=== PATIENT | male | born 1995 | race Caucasian/White ===

== ENCOUNTER 2022-07-10 08:03 | Emergency (ER) | payer OTHER ==
[2022-07-10 08:12] VITALS: BP 145/86; PULSE 96; RESP 18; TEMP 98.4; BMI 36.0
[2022-07-10] MEDS ORDERED: KETOROLAC TROMETHAMINE 30 MG/1 ML VIAL IM ONE (08:30)
== END 2022-07-10 09:04 | disposition home or self-care (01) ==
LOC: FER 08:03
PROC: 3E0233Z Introduction of Anti-inflammatory into Muscle, Percutaneous Approach (ICD-10-PCS; principal; 2022-07-10)
DX: S39.012A Strain of muscle, fascia and tendon of lower back, initial encounter (principal); X50.0XXA Overexertion from strenuous movement or load, initial encounter
CPT/HCPCS: 72100-TC-FY; 99284-25

== ENCOUNTER 2023-09-04 20:10 | Emergency (ER) | payer OTHER ==
[2023-09-04 20:15] VITALS: BP 128/80; PULSE 87; RESP 18; TEMP 98.3; BMI 34.4
== END 2023-09-04 22:06 | disposition home or self-care (01) ==
LOC: JERFT 20:10
DX: S05.12XA Contusion of eyeball and orbital tissues, left eye, initial encounter (principal); H02.846 Edema of left eye, unspecified eyelid; R51.9 Headache, unspecified; W22.8XXA Striking against or struck by other objects, initial encounter; Y99.0 Civilian activity done for income or pay
CPT/HCPCS: 70486-TC; 99284-25

== ENCOUNTER 2024-02-04 08:56 | Emergency (ER) | payer OTHER ==
[2024-02-04 12:13] VITALS: BP 121/82; PULSE 81; RESP 18; TEMP 98.3; BMI 33.0
== END 2024-02-04 11:33 | disposition home or self-care (01) ==
LOC: JERFT 08:56
DX: S01.01XA Laceration without foreign body of scalp, initial encounter (principal); W26.8XXA Contact with other sharp object(s), not elsewhere classified, initial encounter; Y99.0 Civilian activity done for income or pay
CPT/HCPCS: 99283-25

== ENCOUNTER 2024-02-19 11:19 | Emergency (ER) | payer OTHER ==
[2024-02-19 11:33] VITALS: BP 111/81; PULSE 80; RESP 18; TEMP 98.5; BMI 33.2
[2024-02-19] MEDS ORDERED: KETOROLAC TROMETHAMINE 30 MG/1 ML VIAL ONE (11:49)
[2024-02-19] MEDS: KETOROLAC TROMETHAMINE 30 MG/1 ML VIAL IM ONE (11:49)
== END 2024-02-19 13:19 | disposition home or self-care (01) ==
LOC: JERFT 11:19
PROC: 3E0233Z Introduction of Anti-inflammatory into Muscle, Percutaneous Approach (ICD-10-PCS; principal; 2024-02-19)
DX: S76.911A Strain of unspecified muscles, fascia and tendons at thigh level, right thigh, initial encounter (principal); X50.9XXA Other and unspecified overexertion or strenuous movements or postures, initial encounter; Y93.39 Activity, other involving climbing, rappelling and jumping off
CPT/HCPCS: 73552-TC-RT-FY; 99284-25

== ENCOUNTER 2024-05-02 17:35 | Observation (INO) | payer BC, OTHER ==
[2024-05-02] MEDS ORDERED: SULFAMETHOXAZOLE/TRIMETHOPRIM 800MG/160MG D.S. TABLET ONE (18:47)
[2024-05-02] MEDS ORDERED: ceFAZolin SODIUM 1 GM VIAL ONE (18:48)
[2024-05-02 18:50] LABS: BASO % 0.7 % (0-2.0); EOS % 2.2 % (0-4.5); LYMPH % 30.5 % (8-40); MCH 31.7 pg (25.7-33.7); MCHC 34.7 g/dl (32.0-35.9); MEAN CELL VOLUME 91.2 fl (80-96); MEAN PLT VOLUME 7.5 fl (7.5-11.1); MONO % 10.7 % (3.8-10.2); NEUT % 55.9 % (42.8-82.8); PLATELET COUNT 218 10^3/uL (134-434); RBC 5.04 M/mm3 (4.00-5.60); RDW 13.3 % (11.9-15.9)
[2024-05-02 18:55] LABS: INR 0.89 (0.83-1.09); PROTHROMBIN TIME (PATIENT) 10.3 SEC (9.7-13.0)
[2024-05-02 18:57] LABS: ACTIVATED PTT 29.5 SECONDS (25.2-36.5)
[2024-05-02] MEDS: CEFAZOLIN 1 GM in DEXTROSE 5%-WATER - 50 ML IVPB SCH (18:57)
[2024-05-02] MEDS: SULFAMETHOXAZOLE/TRIMETHOPRIM 800MG/160MG D.S. TABLET PO ONE (18:57)
[2024-05-02 19:09] LABS: CHLORIDE 105 mmol/L (98-107); SODIUM 138 mmol/L (136-145)
[2024-05-02 19:13] LABS: ALBUMIN 3.8 g/dl (3.4-5.0); ANION GAP 4 mmol/L (4-13); BLOOD UREA NITROGEN 11.9 mg/dL (7-18); CALCIUM 9.1 mg/dL (8.5-10.1); CO2 30 mmol/L (21-32); GLUCOSE,RANDOM 92 mg/dL (74-106)
[2024-05-02 19:16] LABS: CREATININE 0.8 mg/dL (0.55-1.3); SGOT/AST 27 U/L (15-37); SGPT/ALT 58 U/L (13-61)
[2024-05-02 19:18] LABS: BILIRUBIN,TOTAL 0.3 mg/dL (0.2-1); TOT PROT 7.1 g/dl (6.4-8.2)
[2024-05-02 19:19] LABS: ALK PHOS 76 U/L (45-117)
[2024-05-02 19:33] LABS: ERYTHROCYTE SEDIMENTATION RATE 2 mm/hr (0-10)
[2024-05-03] MEDS ORDERED: ceFAZolin SODIUM 1 GM VIAL ONE (01:30)
[2024-05-03] MEDS ORDERED: DEXTROSE 5%-WATER 100 ML IVPB ONE (01:31)
[2024-05-03 06:29] LABS: POTASSIUM 4.6 mmol/L (3.5-5.1)
[2024-05-03 06:31] LABS: CALCIUM 8.6 mg/dL (8.5-10.1)
[2024-05-03 06:32] LABS: ALBUMIN 3.6 g/dl (3.4-5.0); BLOOD UREA NITROGEN 9.5 mg/dL (7-18); MAGNESIUM 2.1 mg/dL (1.8-2.4)
[2024-05-03 06:35] LABS: CREATININE 0.9 mg/dL (0.55-1.3); PHOSPHOROUS 3.9 mg/dL (2.5-4.9)
[2024-05-03 06:36] LABS: BILIRUBIN,TOTAL 0.3 mg/dL (0.2-1)
[2024-05-03 07:27] LABS: BASO % 0.6 % (0-2.0); EOS % 3.5 % (0-4.5); HEMATOCRIT 47.4 % (35.4-49); HEMOGLOBIN 16.3 GM/dL (11.7-16.9); LYMPH % 37.6 % (8-40); MCH 31.6 pg (25.7-33.7); MCHC 34.5 g/dl (32.0-35.9); MEAN CELL VOLUME 91.5 fl (80-96); MONO % 9.1 % (3.8-10.2); NEUT % 49.2 % (42.8-82.8); PLATELET COUNT 236 10^3/uL (134-434); RBC 5.18 M/mm3 (4.00-5.60); RDW 13.3 % (11.9-15.9); WHITE BLOOD COUNT 8.4 K/mm3 (4.0-10.0)
[2024-05-03] MEDS: ENOXAPARIN NA (PORCINE) 40 MG/0.4 ML DISP.SYRIN SQ SCH (10:03)
[2024-05-03 10:11] VITALS: BMI 33.7
[2024-05-03 13:18] VITALS: BP 138/98; PULSE 83; RESP 20; TEMP 97.5
== END 2024-05-03 14:43 | disposition home or self-care (01) ==
LOC: JER 17:35 → JERBED 19:50 → J7W 05-03 08:55
PROVIDERS: ADMIT Internal Medicine; ATTEND Nurse Practitioner
DX: L03.012 Cellulitis of left finger (principal); G47.30 Sleep apnea, unspecified; W22.8XXA Striking against or struck by other objects, initial encounter; Y93.89 Activity, other specified; Y92.410 Unspecified street and highway as the place of occurrence of the external cause; Y99.0 Civilian activity done for income or pay
CPT/HCPCS: 36415; 73140-TC-LT-FY; 80053; 83735; 84100; 84443; 85025; 85610; 85651; 85730; 86140; 86850; 86900; 86901; 99285-25; G0378

== ENCOUNTER 2025-01-31 10:42 | Emergency (ER) | payer OTHER, BC ==
[2025-01-31 10:54] VITALS: BP 121/80; PULSE 77; RESP 18; TEMP 97.5; BMI 33.6
[2025-01-31] MEDS ORDERED: IBUPROFEN 600 MG TABLET (FP) PO ONE (11:34)
[2025-01-31] MEDS: IBUPROFEN 400 MG TABLET (FP) PO ONE (11:42)
== END 2025-01-31 12:18 | disposition home or self-care (01) ==
LOC: JERFT 10:42
DX: S53.401A Unspecified sprain of right elbow, initial encounter (principal); W22.8XXA Striking against or struck by other objects, initial encounter; Y99.0 Civilian activity done for income or pay
CPT/HCPCS: 73070-TC-RT-FY; 99283-25

== ENCOUNTER 2025-06-06 08:29 | Emergency (ER) | payer BC, OTHER ==
[2025-06-06 08:33] VITALS: BP 132/84; PULSE 74; RESP 18; TEMP 98.4; BMI 33.5
[2025-06-06] MEDS ORDERED: IBUPROFEN 600 MG TABLET (FP) PO ONE (08:53)
[2025-06-06] MEDS: IBUPROFEN 600 MG TABLET (FP) PO ONE (08:56)
== END 2025-06-06 10:42 | disposition home or self-care (01) ==
LOC: JERFT 08:29
DX: S90.111A Contusion of right great toe without damage to nail, initial encounter (principal); W22.8XXA Striking against or struck by other objects, initial encounter
CPT/HCPCS: 73630-TC-RT-FY; 99283-25